=== PATIENT | male | born 1955 | race American Indian/Alaskan Native ===

== ENCOUNTER 2020-11-09 08:36 | Outpatient (CLI) | payer BC ==
--- NOTE | 2020-11-09 09:49 | XRay Report ---
LUMBOSACRAL SPINE 3 VIEWS INDICATION: Back pain. COMPARISON: None. IMPRESSION: Normal alignment. Mild to moderate discogenic DJD and facet arthropathy are identified at L4-5 and L5-S1. No acute osseous or soft tissue abnormality. LEFT KNEE 3 VIEWS INDICATION: LEFT KNEE PAIN. COMPARISON: None. IMPRESSION: No acute osseous or soft tissue abnormality. No significant DJD. LEFT FOOT 3 VIEWS INDICATION: Left foot pain. COMPARISON: None. IMPRESSION: No acute osseous or soft tissue abnormality. Mild osteoarthritic changes are identifi ed at the first metatarsophalangeal joint. No erosive joint pathology. Signer Name: Adrian Hart Jr, MD Signed: 11/09/2020 9:45 AM Workstation Name: [id number]
== END 2020-11-09 08:37 | disposition home or self-care (01) ==
LOC: XRAY 08:36
PROVIDERS: ATTEND Family Medicine Adult Medicine
DX: M19.072 Primary osteoarthritis, left ankle and foot (principal); M47.817 Spondylosis without myelopathy or radiculopathy, lumbosacral region; M25.562 Pain in left knee
CPT/HCPCS: 72100

== ENCOUNTER 2021-04-28 12:05 | Outpatient (CLI) | payer BC ==
--- NOTE | 2021-04-28 12:17 | Cat Scan Report ---
CT ABDOMEN AND PELVIS WITHOUT CONTRAST INDICATION / CLINICAL INFORMATION: LEFT FLANK PAIN. TECHNIQUE: Axial CT images were obtained through the abdomen and pelvis without IV contrast. All CT scans at this location are performed using CT dose reduction for ALARA by means of automated exposure control. COMPARISON: None available. FINDINGS: LOWER CHEST: No significant abnormality. LIVER: No significant abnormality. GALLBLADDER: No significant abnormality. BILE DUCTS: No significant abnormality. PANCREAS: No significant abnormality. SPLEEN: No significant abnormality. ADRENALS: No significant abnormality. RIGHT KIDNEY / URETER: No significant abnormality. LEFT KIDNEY / URETER: 2 water density cysts are noted in the left kidney measuring 4 cm and 1 cm resp ectively. STOMACH / SMALL BOWEL: No significant abnormality. COLON: No significant abnormality. APPENDIX: No significant abnormality. PERITONEUM: No free fluid. No free air. No fluid collection. LYMPH NODES: No significant adenopathy. AORTA / ARTERIES: No significant abnormality. IVC / VEINS: No significant abnormality. URINARY BLADDER: No significant abnormality. REPRODUCTIVE ORGANS: Prostate is enlarged. ADDITIONAL FINDINGS: None. SKELETAL SYSTEM: No acute abnormality IMPRESSION: 1. There is no obstruction, inflammation, or free air. There are no abnormal fluid collections. There are no renal or ureteral calculi. There is no hydronephrosis. Signer Name: Orlando Pate MD Signed: 04/28/2021 12:08 PM Workstation Name: [id number]
== END 2021-04-28 12:06 | disposition home or self-care (01) ==
LOC: CT 12:05
PROVIDERS: ATTEND Family Medicine Adult Medicine
DX: N40.0 Benign prostatic hyperplasia without lower urinary tract symptoms (principal)
CPT/HCPCS: 74176

== ENCOUNTER 2021-07-27 09:50 | Outpatient (CLI) | payer BC ==
--- NOTE | 2021-07-27 12:43 | Magnetic Resonance Report ---
MRI CERVICAL SPINE WITHOUT CONTRAST INDICATION / CLINICAL INFORMATION: M54.2--RIGHT SHOULDER PAIN. TECHNIQUE: Multisequence, multiplanar images of the cervical spine were obtained. COMPARISON: None available. FINDINGS: CRANIOCERVICAL JUNCTION:No significant abnormality. ALIGNMENT: There is 2 mm anterolisthesis of C7 with respect to T1. The remaining cervical vertebra ar e normal in alignment. VERTEBRAE:Normal marrow signal and vertebral body height for age. VISUALIZED SPINAL CORD: No significant abnormality. [id number] ANALYSIS: C2-3: No significant abnormality. C3-4: No significant abnormality. C4-5: There is mild disc desiccation and narrowing. Mild posterior bulging disc and mild bilateral un covertebral spurring. No central canal narrowing. Mild right neural foraminal narrowing. C5-6: There is severe disc space narrowing and circumferential spurring. There is mild to moderate ce ntral canal narrowing measuring 7.5 mm in AP dimension. Mild to moderate bilateral neural foraminal n arrowing. The left side is slightly more affected. C6-7: A large right paracentral disc protrusion is identified which exerts mass effect on the right s parveen of the spinal cord and results in spinal canal narrowing. There is high-grade right neural forami nal narrowing at this level. Mild left neural foraminal narrowing. C7-T1: Grade 1 anterolisthesis is again noted. Mild bilateral uncovertebral spurring and facet arthro mariaelena are evident. No central canal stenosis. Mild bilateral neural foraminal narrowing. PARASPINAL SOFT TISSUES: No significant abnormality. ADDITIONAL FINDINGS: None. IMPRESSION: Large right paracentral disc protrusion at C6-7 with mass effect on the spinal cord. Moderate to severe degenerative disc disease at C5-6 with central canal narrowing and bilateral neura l foraminal narrowing as described. Mild degenerative disc disease at C4-5 and C7-T1 as described. Grade 1 anterolisthesis of C7 with respect to T1 which appears to be secondary to degenerative facet arthropathy. Signer Name: Adrian Hart Jr, MD Signed: 07/27/2021 12:39 PM Workstation Name: [id number]
== END 2021-07-27 09:51 | disposition home or self-care (01) ==
LOC: MRI 09:50
PROVIDERS: ATTEND Family Medicine Adult Medicine
DX: M50.123 Cervical disc disorder at C6-C7 level with radiculopathy (principal); M43.13 Spondylolisthesis, cervicothoracic region; M50.322 Other cervical disc degeneration at C5-C6 level; M50.33 Other cervical disc degeneration, cervicothoracic region; M48.02 Spinal stenosis, cervical region; M47.812 Spondylosis without myelopathy or radiculopathy, cervical region
CPT/HCPCS: 72141